=== PATIENT | male | born 1950 | race Caucasian/White ===

== ENCOUNTER 2020-03-24 13:38 | Day surgery (SDC) | payer MEDICARE ==
[~2020-03-24] VITALS: Ht 180.3 cm; Wt 84.8 kg
[~2020-03-24 13:38] MED LIST: AMOX1TAB64 PO; METF500T17 PO
[2020-03-24] MEDS ORDERED: LACTATED RINGERS 1,000 ML IV SCH ×2 (14:10→22:30)
[2020-03-24] MEDS ORDERED: CHLORHEXIDINE 15 ML UDC MM STA (14:10)
[2020-03-24 14:38] VITALS: BP 175/110
[2020-03-24 14:56] LABS: ALANINE AMINOTRANSFERASE 19 U/L (12-78); ALBUMIN 3.8 g/dL (3.4-5.0); ANION GAP 9 mmol/L (5-15); CALCIUM 8.5 mg/dL (8.5-10.1); CHLORIDE 109 mmol/L (98-107)
[2020-03-24 14:58] LABS: ALKALINE PHOSPHATASE 50 U/L (45-117); BILIRUBIN,TOTAL 1.1 mg/dL (0.2-1.0); TOTAL PROTEIN 7.3 g/dL (6.4-8.2)
[2020-03-24] MEDS ORDERED: MIDAZOLAM 1 MG/ML, 2ML ONE (16:10)
[2020-03-24] MEDS ORDERED: FENTANYL PF 100 MCG/2ML ONE ×3 (16:10→18:39)
[2020-03-24] MEDS ORDERED: PROPOFOL 10 MG/ML, 20ML ONE (16:48)
[2020-03-24] MEDS ORDERED: CEFAZOLIN 1,000 MG ONE ×2 (16:54)
[2020-03-24] MEDS ORDERED: HYDROmorphone 1 MG/ML, 1ML INJ IVPush PRN (17:30)
[2020-03-24] MEDS ORDERED: ONDANSETRON 2MG/ML, 2ML IVPush PRN (17:30)
[2020-03-24] MEDS ORDERED: FENTANYL PF 100 MCG/2ML IV PRN (17:30)
[2020-03-24] MEDS ORDERED: morphine SULFATE 10 MG/ML, 1ML IVPush PRN (17:30)
[2020-03-24] MEDS ORDERED: OXYcodone 5 MG/5 ML ORAL.SOL UDC PO PRN (17:30)
[2020-03-24] MEDS ORDERED: MEPERIDINE/PF 25MG/0.5ML IVPush PRN (17:30)
[2020-03-24] MEDS ORDERED: hydrALAzine 20 MG/ML, 1ML IV PRN (17:30)
[2020-03-24] MEDS ORDERED: LABETALOL 5MG/ML, 20ML IV PRN (17:30)
[2020-03-24] MEDS ORDERED: ACETAMINOPHEN 325 MG TABLET PO PRN (17:30)
[2020-03-24] MEDS ORDERED: BUPIVACAINE/PF 0.5% INFIL ONE (17:48)
[2020-03-24] MEDS ORDERED: OXYcodone 5 MG/5 ML ORAL.SOL UDC ONE (18:39)
[2020-03-24 20:13] VITALS: BP 156/82
[2020-03-24] MEDS ORDERED: HYDROmorphone 1 MG/ML, 1ML INJ ONE (21:36)
[2020-03-24] MEDS ORDERED: ONDANSETRON 2MG/ML, 2ML IV PRN (22:30)
[2020-03-24] MEDS ORDERED: HYDROmorphone 1 MG/ML, 1ML INJ IM PRN (22:30)
[2020-03-24] MEDS ORDERED: HYDROcodone/APAP 5/325 TABLET PO PRN (22:30)
== END 2020-03-24 22:21 | disposition home or self-care (01) ==
LOC: OR 13:38 → 4NE 20:10 → OR 22:21
PROVIDERS: ATTEND Orthopaedic Surgery
DX: S62.616A Displaced fracture of proximal phalanx of right little finger, initial encounter for closed fracture (principal); Z20.828 Contact with and (suspected) exposure to other viral communicable diseases; S62.644A Nondisplaced fracture of proximal phalanx of right ring finger, initial encounter for closed fracture; E11.9 Type 2 diabetes mellitus without complications; Z79.84 Long term (current) use of oral hypoglycemic drugs; Z79.899 Other long term (current) drug therapy; Z82.61 Family history of arthritis; W18.39XA Other fall on same level, initial encounter; Y93.73 Activity, racquet and hand sports; Y92.89 Other specified places as the place of occurrence of the external cause; Y99.8 Other external cause status
CPT/HCPCS: 26720; 26727; 73140; 80053; 82962; 87635; 93005; C1713; J0690; J2250; J2704; J3010; J7120; 76000; G0378

== ENCOUNTER 2020-12-17 14:33 | Emergency (ER) | payer MEDICARE ==
[~2020-12-17] VITALS: Ht 180.3 cm; Wt 93.9 kg
--- NOTE | 2020-12-17 16:02 | NUR ---
TO ROOM FROM LOBBY.
[2020-12-17 16:25] LABS: BASOPHILS % (AUTO) 1 % (0-1); EOSINOPHILS % (AUTO) 4 % (1-7); LYMPHOCYTES % (AUTO) 32 % (22-44); MEAN CORPUSCULAR HEMOGLOBIN 33.4 pg (27.5-34.5); MEAN CORPUSCULAR HGB CONC 35.2 g/dL (33.2-36.2); MEAN PLATELET VOLUME 7.3 fL (7.4-10.4); MONOCYTES % (AUTO) 10 % (2-9); NEUTROPHILS % (AUTO) 53 % (42-75); PLATELET COUNT 237 x10^3/uL (130-400); RED BLOOD COUNT 4.87 x10^6/uL (4.38-5.82)
--- NOTE | 2020-12-17 16:32 | NUR ---
PT IN W IN [facility]. DAHLIA ARMAS, AT BS FOR PT HISTORY AND ASSESSMENT. PT EDUCATED ON ER PROCESS AND POC AND VERBALIZES UNDERSTANDING. PT ATTACHED TO ALL VS MONITORS. VSS AT THIS TIME.
[2020-12-17 16:36] LABS: ALBUMIN 3.9 g/dL (3.4-5.0); ANION GAP 8 mmol/L (5-15); CALCIUM 8.9 mg/dL (8.5-10.1); CHLORIDE 106 mmol/L (98-107)
[2020-12-17 16:39] LABS: ALANINE AMINOTRANSFERASE 27 U/L (12-78); ALKALINE PHOSPHATASE 60 U/L (45-117); BILIRUBIN,TOTAL 0.6 mg/dL (0.2-1.0); TOTAL PROTEIN 7.2 g/dL (6.4-8.2)
--- NOTE | 2020-12-17 16:56 | NUR ---
pt vs updated in emr at this time.
--- NOTE | 2020-12-17 17:06 | NUR ---
PROVIDER AWARE OF PT BP PRIOR TO DC. PER DAHLIA SALINAS, PT IS ASYMPTOMATIC AND WILL GO HOME WITH NEW ANTIHYPERTENSIVE MEDICATION SCRIPT. REPORT GIVEN TO ARISTIDES LOCKHART AT THIS TIME. NO NEW ORDERS RECEIVED FROM PROVIDER.
[2020-12-17 17:15] VITALS: BP 174/98
== END 2020-12-17 17:31 | disposition home or self-care (01) ==
LOC: ED 16:58
DX: I10 Essential (primary) hypertension (principal); R94.31 Abnormal electrocardiogram [ECG] [EKG]; E11.9 Type 2 diabetes mellitus without complications; Z85.46 Personal history of malignant neoplasm of prostate
CPT/HCPCS: 36415; 80053; 85025; 93005; 99284